=== PATIENT | female | born 1990 | race Asian ===

== ENCOUNTER 2018-12-26 09:56 | Emergency (ER) | payer MEDICAID ==
[~2018-12-26] VITALS: Ht 175.3 cm; Wt 154.2 kg
[2018-12-26 10:12] VITALS: BP_SYST 150
[2018-12-26 11:22] VITALS: BP_SYST 145
== END 2018-12-26 11:22 | disposition home or self-care (01) ==
LOC: SED 09:56
DX: J06.9 Acute upper respiratory infection, unspecified (principal); R03.0 Elevated blood-pressure reading, without diagnosis of hypertension; E66.01 Morbid (severe) obesity due to excess calories; Z68.43 Body mass index [BMI] 50.0-59.9, adult
CPT/HCPCS: 36415; 86403; 87081; 99283

== ENCOUNTER 2019-04-27 11:44 | Emergency (ER) | payer MEDICAID ==
[~2019-04-27] VITALS: Ht 177.8 cm; Wt 154.2 kg
[2019-04-27 12:01] VITALS: BP_SYST 150
--- NOTE | 2019-04-27 12:06 | NUR ---
Patient to ER bed 04 to gown for evaluation. Side rails up.
--- NOTE | 2019-04-27 12:25 | NUR ---
Pt AAOx4 ambulated into ED c/o rash to palm and soles of feet with white exudate to tonsils since last night. Pt denies pain/SOB/n/v/d. Pt denies taking medication for symptoms. No other injuries/complaints per pt/noted. Will continue to monitor.
--- NOTE | 2019-04-27 12:34 | NUR ---
ER Dr. Jones at bedside examining patient.
[2019-04-27 13:09] VITALS: BP_SYST 139
--- NOTE | 2019-04-27 13:11 | NUR ---
Note undone in EDM - 04/27/19 at 1345 by [email or web address] Patient given written and verbal discharge instructions and verbalizes understanding. ER MD Jones discussed with patient the results and treatment provided. Patient in stable condition. ID arm band removed. Rx of Allie Patel given. Patient educated on pain management and to follow up with PMD. Pain Scale 0. Opportunity for questions provided and answered. Medication side effect fact sheet provided.
== END 2019-04-27 13:09 | disposition home or self-care (01) ==
LOC: SED 11:44
DX: C10.9 Malignant neoplasm of oropharynx, unspecified (principal); J02.9 Acute pharyngitis, unspecified; L98.8 Other specified disorders of the skin and subcutaneous tissue; R03.0 Elevated blood-pressure reading, without diagnosis of hypertension; Z91.010 Allergy to peanuts
CPT/HCPCS: 81025; 99283

== ENCOUNTER 2019-04-28 12:04 | Emergency (ER) | payer MEDICAID ==
[~2019-04-28] VITALS: Ht 177.8 cm; Wt 154.2 kg
[2019-04-28 12:27] VITALS: BP_SYST 155
--- NOTE | 2019-04-28 12:31 | NUR ---
Patient triaged and placed in waiting room. VSS and patient appears in no acute distress at this time. Accompanied by self, awaiting available bed, and MD notified of need for MSE.
--- NOTE | 2019-04-28 13:20 | NUR ---
Patient to ER bed 1 to gown for evaluation. Side rails up. Report given to Lencho SALTER.
--- NOTE | 2019-04-28 13:25 | NUR ---
Patient is awake, alert, and oriented x4. Patient was recently in the ER, states her rash has worsened.
--- NOTE | 2019-04-28 13:27 | NUR ---
ROD Goodman at bedside examining patient.
[2019-04-28 13:39] VITALS: BP_SYST 145
--- NOTE | 2019-04-28 13:39 | NUR ---
Patient given written and verbal discharge instructions and verbalizes understanding. ER MD discussed with patient the results and treatment provided. Patient in stable condition. ID arm band removed.Patient educated on pain management and to follow up with PMD. Pain Scale 0/10. Opportunity for questions provided and answered. Medication side effect fact sheet provided.
== END 2019-04-28 13:39 | disposition home or self-care (01) ==
LOC: SED 12:04
DX: B09 Unspecified viral infection characterized by skin and mucous membrane lesions (principal); Z91.010 Allergy to peanuts
CPT/HCPCS: 99283

== ENCOUNTER 2020-01-07 11:29 | Emergency (ER) | payer MEDICAID ==
[~2020-01-07] VITALS: Ht 175.3 cm; Wt 158.8 kg
[2020-01-07 11:45] VITALS: BP_SYST 190
[2020-01-07 12:27] VITALS: BP_SYST 152
== END 2020-01-07 12:27 | disposition home or self-care (01) ==
LOC: SED 11:29
DX: J03.90 Acute tonsillitis, unspecified (principal); L30.9 Dermatitis, unspecified; Z91.018 Allergy to other foods
CPT/HCPCS: 99283